=== PATIENT | male | born 1960 | race Caucasian/White ===

== ENCOUNTER 2018-09-17 08:24 | Day surgery (SDC) | payer BC ==
[~2018-09-17 08:24] MED LIST: Lactated Ringers 1,000 ML IV SCH
[2018-09-17] MEDS ORDERED: fentaNYL 100 MCG/2 ML SDV ONE (09:53)
[2018-09-17] MEDS ORDERED: Propofol 200 MG/20 ML SDV ONE ×2 (09:53→10:53)
--- NOTE | 2018-09-17 11:45 | OR ---
PREOPERATIVE DIAGNOSIS: History of polyps. POSTOPERATIVE DIAGNOSES: Colonic polyps x3, sigmoid diverticulosis. PROCEDURE PROPOSED: Total flexible colonoscopy. PROCEDURE DONE: Total flexible colonoscopy with cold snare polypectomy x3. INDICATION: This is a 58-year-old gentleman who has a history of polyps. He had an examination at age 51 for screening purposes. He was found to have several polyps, he now comes in 7 years later for a followup exam. TECHNIQUE: The patient brought to the endoscopy suite, placed in left lateral decubitus position. He was sedated per [employer] with propofol. The flexible video colonoscope was then passed transanally and under visualization advanced to the cecum. Examination revealed a normal ascending, transverse, descending colon. In the sigmoid colon, he had [id number] diverticulosis and he was found to have several polyps throughout the left colon, 1 at 60 cm, removed by 2 bites of the cold biopsy forceps, 1 at 40 cm removed with 2 bites of the cold biopsy forceps, and another 1 in the rectum at 10 cm, removed with 1 bite of the cold biopsy forceps. All polyps were submitted for pathologic examination and the scope was then withdrawn. He tolerated the procedure well. FINAL IMPRESSION: 1. Colonic polyps x3, removed. 2. Sigmoid diverticulosis. PLAN: The patient will be sent a letter with pathology report. I felt with his history of forming polyps, he should have a colonoscopy done every 5 years hereafter. SCM: 09/17/2018 11:14:07 MODL: 09/17/2018 11:39:09 /[id number]
== END 2018-09-17 12:00 | disposition home or self-care (01) ==
LOC: VM.SDS 08:24
PROVIDERS: ATTEND Surgery
DX: Z12.11 Encounter for screening for malignant neoplasm of colon (principal); D12.5 Benign neoplasm of sigmoid colon; K63.5 Polyp of colon; K57.30 Diverticulosis of large intestine without perforation or abscess without bleeding; E66.9 Obesity, unspecified; Z68.39 Body mass index [BMI] 39.0-39.9, adult; G47.33 Obstructive sleep apnea (adult) (pediatric); Z86.010 Personal history of colon polyps; Z79.82 Long term (current) use of aspirin; Z79.899 Other long term (current) drug therapy; Z88.0 Allergy status to penicillin; Z88.2 Allergy status to sulfonamides; Z88.1 Allergy status to other antibiotic agents
CPT/HCPCS: J2704; J3010; J7120

== ENCOUNTER 2025-06-08 08:43 | Day surgery (SDC) | payer BC ==
[~2025-06-08 08:43] MED LIST changes: -Lactated Ringers 1,000 ML IV SCH; +Propofol 200 MG/20 ML SDV ONE; +fentaNYL 100 MCG/2 ML SDV ONE
[2025-06-08] MEDS: Lactated Ringers 1,000 ML IV SCH (08:56)
[2025-06-08] MEDS ORDERED: Propofol 200 MG/20 ML SDV ONE (11:16)
== END 2025-06-08 12:21 | disposition home or self-care (01) ==
LOC: VM.SDS 08:43
PROVIDERS: ATTEND Family Medicine
DX: Z12.11 Encounter for screening for malignant neoplasm of colon (principal); D12.3 Benign neoplasm of transverse colon; D12.4 Benign neoplasm of descending colon; E66.9 Obesity, unspecified; Z68.34 Body mass index [BMI] 34.0-34.9, adult; Z88.0 Allergy status to penicillin; Z88.2 Allergy status to sulfonamides; Z88.6 Allergy status to analgesic agent; Z86.0100 Personal history of colon polyps, unspecified; Z79.82 Long term (current) use of aspirin; Z79.899 Other long term (current) drug therapy
CPT/HCPCS: 00811; 45380; J2704; J3010; J7120